=== PATIENT | male | born 1940 | race Caucasian/White ===

== ENCOUNTER 2021-10-02 15:15 | Emergency (ER) | payer OTHER ==
[2021-10-02] MEDS ORDERED: BUMETANIDE1 MG PO (16:54)
[2021-10-02] MEDS ORDERED: Imdur SA60 MG PO (16:55)
[2021-10-02] MEDS ORDERED: ATORVASTATIN CA40 M1 PO (16:55)
[2021-10-02] MEDS ORDERED: FERROUS GLUCON324 MG PO (16:56)
[2021-10-02] MEDS ORDERED: CLOPIDOGREL75 MG PO (16:56)
[2021-10-02] MEDS ORDERED: PROTONIX40 MG PO (17:03)
[2021-10-02] MEDS ORDERED: COREG12.5 M1 PO (17:04)
[2021-10-02] MEDS ORDERED: NORVASC10 MG PO (17:04)
[2021-10-02] MEDS ORDERED: GOOD SENSE ASP325 MG PO (17:05)
== END 2021-10-02 18:06 | disposition home or self-care (01) ==
LOC: ED 15:15
DX: R26.89 Other abnormalities of gait and mobility (principal); I10 Essential (primary) hypertension; Z79.899 Other long term (current) drug therapy; Z79.82 Long term (current) use of aspirin